=== PATIENT | female | born 1940 | race African-American/Black ===

== ENCOUNTER → 2017-03-06 | Outpatient (CLI) | payer OTHER, BC ==
[~2017-03-06] MED LIST: ADULT LOW DOSE81 MG PO; ANASTROZOLE1 MG PO; AZOR 10-40 MG1 EACH PO; BYSTOLIC 5 MG5 M1 PO; CALTRATE-600 W1 EACH PO; CENTRUM SILVER1 EAC1 PO; FEXOFENADINE H180 MG PO; HYDROCHLOROTHIA25 M1 PO; KLOR-CON 1010 MEQ PO; ODORLESS GARLI500 MG PO; OXYBUTYNIN 5 MG5 M1 PO; PERCOCET 5-3251 EACH PO; PRAVASTATIN SOD40 MG PO; PRILOSEC 20 MG20 MG PO; PROTONIX40 M1 PO
== END ==
LOC: RAD 09:21
DX: Z12.31 Encounter for screening mammogram for malignant neoplasm of breast (principal)

== ENCOUNTER → 2017-07-31 | Outpatient (CLI) | payer OTHER, BC | LOC: CAT 11:06 | DX: D86.9 Sarcoidosis, unspecified (principal) ==

== ENCOUNTER → 2018-06-11 | Outpatient (CLI) | payer OTHER, BC | LOC: RAD 12:42 | DX: D86.9 Sarcoidosis, unspecified (principal); I77.810 Thoracic aortic ectasia ==